=== PATIENT | male | born 1995 | race Caucasian/White ===

== ENCOUNTER 2018-02-28 12:30 | Emergency (ER) | payer SELFPAY ==
--- NOTE | 2018-02-28 14:52 | EDPHYS ---
Physician Documentation [facility] Name: Mic Carolina Age: 23 yrs Sex: Male : 1995 Arrival Date: 02/28/2018 Time: 12:34 Bed 5 Private MD: ED Physician Bernabe Carmona HPI: 02/28 14:15 This 23 yrs old Male presents to ER via Ambulatory with complaints of Pain cp All Over, Skin Sore(s). 14:15 The patient's rash thought to be caused by an unknown cause. cp 14:15 The rash is located on the body diffusely. The rash can be described as "skin sores". cp Associated signs and symptoms: Pertinent positives: generalized pain. Historical: - Allergies: 13:16 No Known Allergies; la1 - PMHx: 13:16 None; la1 - PSHx: 13:16 jaw surgery; la1 - Immunization history:: Adult Immunizations up to date. - Social history:: Smoking status: Patient uses tobacco products, smokes one-half pack cigarettes per day. - Ebola Screening: : No symptoms or risks identified at this time. ROS: 14:18 Skin: Positive for rash, diffusely. cp 14:18 Constitutional: Positive for generalized pain, Negative for fever, poor PO intake. cp 14:18 Respiratory: Negative for cough, shortness of breath, wheezing. 14:18 Abdomen/GI: Negative for abdominal pain, nausea, vomiting, and diarrhea. 14:18 : Negative for urinary symptoms, testicular pain 14:18 Neuro: Negative for altered mental status, dizziness, headache, weakness. 14:18 All other systems are negative. Exam: 14:22 Constitutional: The patient appears in no acute distress, alert, awake, non-toxic, well cp developed, well nourished. 14:22 Head/Face: Normocephalic, atraumatic. cp Vital Signs: 13:16 BP 134 / 97; Pulse 97; Resp 15; Temp 98.4; Pulse Ox 98% on R/A; Weight 72.57 kg; Height la1 6 ft. 1 in. (185.42 cm); 14:06 BP 125 / 76; Pulse 68; Resp 18; Pulse Ox 99% on R/A; hj 13:16 Body Mass Index 21.11 (72.57 kg, 185.42 cm) la1 MDM: 14:10 Patient medically screened. cp 14:55 ED course: Patient left ED after initial evaluation by provider and prior to cp reevaluation. Administered Medications: No medications were administered Disposition: 15:00 Chart complete. cp Disposition: 02/28/18 14:51 Patient left the facility before being seen by provider. - Patient left due to unknown. Addendum: 03/11/2018 15:32 Co-signature as Attending Physician, Bernabe Carmona MD Available for consultation at p s1 all times. . Signatures: Sean Romero RN RN la1 Oli Ott RN RN Marlon Worley, CLARA PA cp Bernabe Carmona MD MD ps1 Corrections: (The following items were deleted from the chart) 02/28 20:11 14:51 02/28/2018 14:51 Patient left the facility before being seen by provider. Reason cp stated they are leaving due to unknown. christine
--- NOTE | 2018-02-28 14:52 | ER ---
Nurse's Notes [facility] Name: Mic Carolina Age: 23 yrs Sex: Male : 1995 Arrival Date: 02/28/2018 Time: 12:34 Bed 5 Private MD: Diagnosis: Presentation: 02/28 13:14 Presenting complaint: Patient states: I have been having sores pop up all over my body, la1 my joints and body aches, and my feet are hurting real bad, I can barely walk. Pt reports history of IV drug use but not recently. Transition of care: patient was not received from another setting of care. Onset of symptoms was February 28, 2018. Risk Assessment: Do you want to hurt yourself or someone else? Patient reports no desire to harm self or others. Initial Sepsis Screen: Does the patient meet any 2 criteria? No. Patient's initial sepsis screen is negative. Does the patient have a suspected source of infection? No. Patient's initial sepsis screen is negative. Care prior to arrival: None. 13:14 Method Of Arrival: Ambulatory la1 13:14 Acuity: TANYA 3 la1 Triage Assessment: 14:04 General: Appears in no apparent distress. uncomfortable, Behavior is calm, cooperative, hj appropriate for age. Pain: Complains of pain in body. Historical: - Allergies: 13:16 No Known Allergies; la1 - PMHx: 13:16 None; la1 - PSHx: 13:16 jaw surgery; la1 - Immunization history:: Adult Immunizations up to date. - Social history:: Smoking status: Patient uses tobacco products, smokes one-half pack cigarettes per day. - Ebola Screening: : No symptoms or risks identified at this time. Screenin:03 Abuse screen: Denies threats or abuse. Denies injuries from another. Nutritional hj screening: No deficits noted. Tuberculosis screening: No symptoms or risk factors identified. Fall Risk None identified. Assessment: 14:04 General: Appears in no apparent distress. uncomfortable, Behavior is calm, cooperative, hj appropriate for age. Pain: Complains of pain in body. Neuro: Level of Consciousness is awake, alert, obeys commands, Oriented to person, place, time, situation, Appropriate for age. Cardiovascular: Capillary refill < 3 seconds Patient's skin is warm and dry. Respiratory: Airway is patent Respiratory effort is even, unlabored, Respiratory pattern is regular, symmetrical. GI: No signs and/or symptoms were reported involving the gastrointestinal system. : No signs and/or symptoms were reported regarding the genitourinary system. EENT: No signs and/or symptoms were reported regarding the EENT system. Derm: No signs and/or symptoms reported regarding the dermatologic system. Musculoskeletal: No signs and/or symptoms reported regarding the musculoskeletal system. 14:15 Reassessment: pt soul not be found in the rooml;. hj 14:30 Reassessment: pt could not be found in ED; called pt; no answer, voice mail not set up;.hj Vital Signs: 13:16 BP 134 / 97; Pulse 97; Resp 15; Temp 98.4; Pulse Ox 98% on R/A; Weight 72.57 kg; Height la1 6 ft. 1 in. (185.42 cm); 14:06 BP 125 / 76; Pulse 68; Resp 18; Pulse Ox 99% on R/A; hj 13:16 Body Mass Index 21.11 (72.57 kg, 185.42 cm) la1 ED Course: 12:34 Patient arrived in ED. mr 13:16 Triage completed. la1 13:16 Arm band placed on right wrist. la1 14:03 Oli Ott RN is Primary Nurse. hj 14:04 Patient has correct armband on for positive identification. Bed in low position. Call hj light in reach. Side rails up X 1. Adult w/ patient. 14:10 Marlon Tanner PA is PHCP. cp 14:10 Bernabe Carmona MD is Attending Physician. cp 14:50 No provider procedures requiring assistance completed. Patient did not have IV access hj during this emergency room visit. Administered Medications: No medications were administered Outcome: 14:50 Eloped from patient exam room, before seeing physician Time discovered patient gone: hj February 28, 2018 at 14:45 14:50 Condition: stable 14:51 Patient left the ED. hj Signatures: AnglinElida alas NickSean, RN RN la1 Oli Ott RN RN Marlon Tanner PA PA cp
== END 2018-02-28 14:51 | disposition left against medical advice (07) ==
LOC: ER 12:30
DX: R21 Rash and other nonspecific skin eruption (principal); Z53.21 Procedure and treatment not carried out due to patient leaving prior to being seen by health care provider; F17.210 Nicotine dependence, cigarettes, uncomplicated
CPT/HCPCS: 99281

== ENCOUNTER 2018-03-02 07:43 | Emergency (ER) | payer SELFPAY ==
--- NOTE | 2018-03-02 08:12 | ER ---
Nurse's Notes [facility] Name: Mic Carolina Age: 23 yrs Sex: Male : 1995 Arrival Date: 03/02/2018 Time: 07:44 Bed 18 Private MD: Diagnosis: Erythema nodosum;Disorder of the skin and subcutaneous tissue, unspecified Presentation: 03/02 07:59 Presenting complaint: Patient states: joint pain to left knee X 1 week, pain to right iw foot, multiple small skin sores on legs and arms, in nose, hx of IV drug abuse, no fever. Transition of care: patient was not received from another setting of care. Onset of symptoms was February 24, 2018. Risk Assessment: Do you want to hurt yourself or someone else? Patient reports no desire to harm self or others. Initial Sepsis Screen: Does the patient meet any 2 criteria? No. Patient's initial sepsis screen is negative. Does the patient have a suspected source of infection? No. Patient's initial sepsis screen is negative. Care prior to arrival: None. 07:59 Method Of Arrival: Wheelchair iw 07:59 Acuity: TANYA 4 iw Historical: - Allergies: 08:04 No Known Allergies; iw - Home Meds: 08:04 None [Active]; iw - PMHx: 08:04 None; iw - PSHx: 08:04 jaw surgery; iw - Immunization history:: Last tetanus immunization: unknown. - Social history:: Patient uses IV drugs, Patient/guardian denies using alcohol, caffeine, The patient lives alone, Smoking status: Patient uses IV drugs, injects Suboxone . - Family history:: not pertinent. - Ebola Screening: : Patient negative for fever greater than or equal to 101.5 degrees Fahrenheit, and additional compatible Ebola Virus Disease symptoms Patient denies exposure to infectious person Patient denies travel to an Ebola-affected area in the 21 days before illness onset No symptoms or risks identified at this time. Screenin:08 Abuse screen: Denies threats or abuse. Denies injuries from another. Nutritional iw screening: No deficits noted. Tuberculosis screening: No symptoms or risk factors identified. Fall Risk None identified. Assessment: 08:06 General: Appears in no apparent distress. Behavior is cooperative. General: Denies iw fever. Pain: Complains of pain in right foot and posterior aspect of left knee. Neuro: Level of Consciousness is awake, alert, obeys commands, Oriented to person, place, time, situation, Moves all extremities. Full function. Cardiovascular: Capillary refill < 3 seconds in bilateral fingers Patient's skin is warm and dry. Respiratory: Respiratory effort is even, unlabored, Respiratory pattern is regular, symmetrical. GI: No signs and/or symptoms were reported involving the gastrointestinal system. Abdomen is flat, non-distended. Derm: Wound noted right arm, left arm, right leg and left leg. Musculoskeletal: Range of motion: intact in all extremities. Vital Signs: 08:05 BP 138 / 90; Pulse 99; Resp 16; Temp 98.2(O); Pulse Ox 100% on R/A; iw ED Course: 07:44 Patient arrived in ED. as 08:01 Gloria Almaraz MD is Attending Physician. ma2 08:01 Triage completed. iw 08:04 Tiffanie Moody, RN is Primary Nurse. iw 08:05 Arm band placed on. iw 08:08 Patient has correct armband on for positive identification. iw 08:08 No provider procedures requiring assistance completed. Patient did not have IV access iw during this emergency room visit. Administered Medications: 08:33 Drug: Clindamycin 300 mg Route: PO; iw Outcome: 08:12 Discharge ordered by . ma2 08:30 Discharged to home ambulatory, with friend. iw 08:30 Condition: good 08:30 Discharge instructions given to patient, Instructed on discharge instructions, follow up and referral plans. medication usage, Demonstrated understanding of instructions, follow-up care, medications, Prescriptions given X 3. 08:33 Patient left the ED. iw Signatures: Marcela Santoyo as Tiffanie Moody, RN RN iw Gloria Almaraz MD MD [facility]
--- NOTE | 2018-03-02 08:12 | EDPHYS ---
Physician Documentation [facility] Name: Mic Carolina Age: 23 yrs Sex: Male : 1995 Arrival Date: 03/02/2018 Time: 07:44 Bed 18 Private MD: ED Physician Gloria Almaraz HPI: 03/02 08:01 This 23 yrs old Male presents to ER via Unassigned with complaints of Skin ma2 Sore(s), Leg Pain, Foot Pain. 08:01 The patient presents with a rash. The complaints affect the lateral aspect of right ma2 calf, right ankle and right calf. Onset: The symptoms/episode began/occurred gradually, 2 week(s) ago. Associated signs and symptoms: Pertinent positives: rash, Pertinent negatives fever, swelling, tingling, vomiting, warmth, weakness. Severity of symptoms: At their worst the symptoms were mild, in the emergency department the symptoms are unchanged. The patient has not experienced similar symptoms in the past. 23 yo hx of hep C, IV opiates users here with multiple skin ulcers x 2 weeks constant unchanged mild . Historical: - Allergies: 08:04 No Known Allergies; iw - Home Meds: 08:04 None [Active]; iw - PMHx: 08:04 None; iw - PSHx: 08:04 jaw surgery; iw - Immunization history:: Last tetanus immunization: unknown. - Social history:: Patient uses IV drugs, Patient/guardian denies using alcohol, caffeine, The patient lives alone, Smoking status: Patient uses IV drugs, injects Suboxone . - Family history:: not pertinent. - Ebola Screening: : Patient negative for fever greater than or equal to 101.5 degrees Fahrenheit, and additional compatible Ebola Virus Disease symptoms Patient denies exposure to infectious person Patient denies travel to an Ebola-affected area in the 21 days before illness onset No symptoms or risks identified at this time. ROS: 08:01 Constitutional: Negative for fever, chills, and weight loss, ENT: Negative for injury, ma2 pain, and discharge. 08:01 Skin: Positive for lesions, Negative for abrasions, ecchymosis, jaundice, swelling. 08:01 All other systems are negative. Exam: 08:01 Constitutional: This is a well developed, well nourished patient who is awake, alert, ma2 and in no acute distress. Chest/axilla: Normal chest wall appearance and motion. Nontender with no deformity. No lesions are appreciated. Cardiovascular: Regular rate and rhythm with a normal S1 and S2. No gallops, murmurs, or rubs. Normal PMI, no JVD. No pulse deficits. Respiratory: Lungs have equal breath sounds bilaterally, clear to auscultation and percussion. No rales, rhonchi or wheezes noted. No increased work of breathing, no retractions or nasal flaring. Abdomen/GI: Soft, non-tender, with normal bowel sounds. No distension or tympany. No guarding or rebound. No evidence of tenderness throughout. MS/ Extremity: Pulses equal, no cyanosis. Neurovascular intact. Full, normal range of motion. 08:01 Skin: multiple open small superficial 2 mm open ulcers, dry, over all extremities and 1 single ulcer on lower lip, in addition has right tibia elevated skin lesion that is consistent with erythema nodosum . Vital Signs: 08:05 BP 138 / 90; Pulse 99; Resp 16; Temp 98.2(O); Pulse Ox 100% on R/A; iw MDM: 08:01 Patient medically screened. ma2 08:01 Differential diagnosis: skin infection, erythema nodosum, unlikely viral prodrome hep c ma2 flare or primary hiv got tested for HIV recently. Data reviewed: vital signs, nurses notes. Counseling: I had a detailed discussion with the patient and/or guardian regarding: the historical points, exam findings, and any diagnostic results supporting the discharge/admit diagnosis, the presence of at least one elevated blood pressure reading (>120/80) during this emergency department visit, the need for outpatient follow up. Administered Medications: 08:33 Drug: Clindamycin 300 mg Route: PO; iw Disposition: 03/02/18 08:12 Discharged to Home. Impression: Erythema nodosum, Disorder of the skin and subcutaneous tissue, unspecified. - Condition is Stable. - Discharge Instructions: Substance Use Disorder. - Prescriptions for Bactroban 2 % Topical Ointment - apply 1 application by INTRANASAL route every 12 hours for 5 days; 15 gram. Clindamycin HCl 300 mg Oral Capsule - take 1 capsule by ORAL route every 6 hours for 10 days; 40 capsule. Nystatin- Triamcinolone 100,000-0.1 unit/gram-% Topical Ointment - apply 1 application by TOPICAL route 2 times per day; 1 tube. - Work release form, Medication Reconciliation Form, Thank You Letter, Antibiotic Education, Prescription Opioid Use form. - Follow up: Private Physician; When: Tomorrow; Reason: Continuance of care. Signatures: Tiffanie Moody RN RN Gloria Cesar MD MD ma2 Corrections: (The following items were deleted from the chart) 08:33 08:12 03/02/2018 08:12 Discharged to Home. Impression: Erythema nodosum; Disorder of iw the skin and subcutaneous tissue, unspecified. Condition is Stable. Forms are Work release form, Medication Reconciliation Form, Thank You Letter, Antibiotic Education, Prescription Opioid Use. Follow up: Private Physician; When: Tomorrow; Reason: Continuance of care. ma2
[2018-03-02] MEDS ORDERED: CLINDAMYCIN HCL 150 MG CAP ONE (08:36)
== END 2018-03-02 08:33 | disposition home or self-care (01) ==
LOC: ER 07:43
DX: L52 Erythema nodosum (principal); L98.9 Disorder of the skin and subcutaneous tissue, unspecified
CPT/HCPCS: 99283